=== PATIENT | female | born 1960 | race Caucasian/White ===

== ENCOUNTER 2018-01-14 17:41 | Inpatient (IN) | payer BC ==
[~2018-01-14] VITALS: Ht 167.6 cm; Wt 162.0 kg
[2018-01-14] MEDS ORDERED: ipratropium/albuterol 3ml nebule NEB ONE (17:55)
[2018-01-14] MEDS ORDERED: methylPREDNISolone sod succ 125mg/2ml vial IV ONE (17:55)
[2018-01-14 18:31] LABS: BASOPHILS % (AUTO) 0.2 % (0-1); EOSINOPHILS # (AUTO) 0.2 X10'3 (0-0.9); EOSINOPHILS % (AUTO) 1.2 % (0-6); HEMATOCRIT 39.6 % (35.0-45.0); HEMOGLOBIN 13.3 g/dl (12.0-16.0); LYMPHOCYTES # (AUTO) 2.7 X10'3 (1.1-4.8); LYMPHOCYTES % (AUTO) 18.9 % (21-51); MEAN CORPUSCULAR HEMOGLOBIN 29.9 PG (27.0-31.0); MEAN CORPUSCULAR HGB CONC 33.4 % (33.0-36.5); MEAN CORPUSCULAR VOLUME 89.4 FL (78-98); MEAN PLATELET VOLUME 8.5 FL (7.4-10.4); MONOCYTES % (AUTO) 7.2 % (2-12); NEUTROPHILS # (AUTO) 10.2 X10'3 (1.8-7.7); NEUTROPHILS % (AUTO) 72.5 % (42-75); PLATELET COUNT 310 X10'3 (140-440); RED BLOOD COUNT 4.43 X10'6 (4.20-5.60); RED CELL DISTRIBUTION WIDTH 16.7 % (11.5-14.5); WHITE BLOOD COUNT 14.1 X10'3 (4.5-11.0)
[2018-01-14 18:38] LABS: PARTIAL THROMBOPLASTIN TIME 28 SECONDS (22-32); PROTHROMBIN TIME 10.6 SECONDS (9.0-12.0)
[2018-01-14 18:45] LABS: ANION GAP 9 (8-16); BLOOD UREA NITROGEN 14 MG/DL (7-18); BUN/CREATININE RATIO 14.7 (6.6-38.0); CHLORIDE 101 MMOL/L (99-107); CREATININE 0.95 MG/DL (0.40-0.90); GLUCOSE 124 MG/DL (70-104); POTASSIUM 3.1 MMOL/L (3.5-5.1); SODIUM 137 MMOL/L (135-145); TOTAL CARBON DIOXIDE 26.9 MMOL/L (24-32)
[2018-01-14 18:46] LABS: ALANINE AMINOTRANSFERASE 51 U/L (12-78); ALBUMIN 3.1 G/DL (3.4-5.0); ALBUMIN/GLOBULIN RATIO 0.7 (1.1-1.5); ALKALINE PHOSPHATASE 180 IU/L (46-116); ASPARTATE AMINO TRANSFERASE 53 U/L (10-37); BILIRUBIN,TOTAL 0.3 MG/DL (0.1-1.0); CALCIUM 8.8 MG/DL (8.5-10.1); TOTAL PROTEIN 7.5 G/DL (6.4-8.2); eGFR 61 ML/MIN
[2018-01-14 19:12] LABS: TOTAL CELLS COUNTED 100
[2018-01-14 19:13] LABS: PLATELET ESTIMATE NORMAL
[2018-01-14] MEDS ORDERED: iohexol 350MG/ML 100ml bottle IV ONE (20:21)
[2018-01-14] MEDS ORDERED: furosemide 10 MG/1 ML 10ml inj IV ONE (23:00)
[2018-01-14] MEDS ORDERED: levoFLOXACIN-Levaquin 500mg/D5 100 ML IV ONE (23:00)
[2018-01-14] MEDS ORDERED: potassium Cl 10 mEq/100mL bag IV ONE (23:35)
[2018-01-15] MEDS ORDERED: HYDROcodone/acetaminophen 5mg/325mg tablet PO PRN (00:25)
[2018-01-15] MEDS ORDERED: HYDROcodone/acetaminophen 10/325mg tab PO PRN (00:25)
[2018-01-15] MEDS ORDERED: magnesium 4gm in 100ml NS 100 ML IV PRN (00:25)
[2018-01-15] MEDS ORDERED: magnesium hydroxide 30ml (MOM) UD suspension PO PRN (00:25)
[2018-01-15] MEDS ORDERED: enoxaparin 30mg/0.3ml syringe SUBCUT ONE (00:25)
[2018-01-15] MEDS ORDERED: magnesium Cl slow-release 64mg tablet PO PRN (00:25)
[2018-01-15] MEDS ORDERED: magnesium 2GM in 50ml NS 50 ML IV PRN (00:25)
[2018-01-15] MEDS ORDERED: mag hydrox/Alum hydrox/simeth 30ml oral suspension PO PRN (00:25)
[2018-01-15] MEDS ORDERED: potassium Cl 20 mEq SR tablet PO PRN ×2 (00:25)
[2018-01-15] MEDS ORDERED: acetaminophen 325mg tablet PO PRN (00:25)
[2018-01-15] MEDS ORDERED: ondansetron/PF 4mg/2ml inj IV PRN (00:25)
[2018-01-15] MEDS ORDERED: potassium Cl 40MEQ/NS 500ml 500 ML IV PRN ×2 (00:25)
[2018-01-15] MEDS ORDERED: METH2.5T PO (00:33)
[2018-01-15] MEDS ORDERED: FOLI1TAB16 PO (00:33)
[2018-01-15] MEDS ORDERED: DOCU-28 PO (00:33)
[2018-01-15] MEDS ORDERED: PRED5TAB PO (00:33)
[2018-01-15] MEDS ORDERED: OMEP40CA37 PO (00:33)
[2018-01-15] MEDS ORDERED: LEVO75TA PO (00:33)
[2018-01-15] MEDS ORDERED: HYDR-569 PO (00:33)
[2018-01-15] MEDS ORDERED: temazepam 15mg capsule PO PRN (00:46)
[2018-01-15] MEDS ORDERED: potass W/LIDOcaine 10mEq/100ml 100 ML IV ONE ×2 (00:50→00:55)
[2018-01-15] MEDS ORDERED: levoFLOXACIN-Levaquin 250mg/D5 50 ML IV ONE (01:00)
[2018-01-15] MEDS: potassium Cl 20mEq in NS 1,000 ML IV SCH ×2 (01:07→10:48)
[2018-01-15] MEDS: CefTRIAXone 2gm/D5W 50ml 50 ML IV SCH ×2 (02:06→22:30)
[2018-01-15 07:33] VITALS: BP 97/57
[2018-01-15] MEDS: K and/or MAG REPLACEMENT MC SCH (08:00)
[2018-01-15 09:06] LABS: BASOPHILS % (AUTO) 0.1 % (0-1); EOSINOPHILS # (AUTO) 0.1 X10'3 (0-0.9); EOSINOPHILS % (AUTO) 0.9 % (0-6); HEMATOCRIT 37.3 % (35.0-45.0); HEMOGLOBIN 12.6 g/dl (12.0-16.0); LYMPHOCYTES # (AUTO) 1.4 X10'3 (1.1-4.8); LYMPHOCYTES % (AUTO) 10.8 % (21-51); MEAN CORPUSCULAR HEMOGLOBIN 29.9 PG (27.0-31.0); MEAN CORPUSCULAR HGB CONC 33.9 % (33.0-36.5); MEAN CORPUSCULAR VOLUME 88.2 FL (78-98); MEAN PLATELET VOLUME 8.9 FL (7.4-10.4); MONOCYTES # (AUTO) 0.3 X10'3 (0-0.9); MONOCYTES % (AUTO) 2.7 % (2-12); NEUTROPHILS # (AUTO) 10.8 X10'3 (1.8-7.7); NEUTROPHILS % (AUTO) 85.5 % (42-75); PLATELET COUNT 318 X10'3 (140-440); RED BLOOD COUNT 4.23 X10'6 (4.20-5.60); WHITE BLOOD COUNT 12.6 X10'3 (4.5-11.0)
[2018-01-15 09:29] LABS: ALANINE AMINOTRANSFERASE 46 U/L (12-78); ALBUMIN 2.7 G/DL (3.4-5.0); ALBUMIN/GLOBULIN RATIO 0.6 (1.1-1.5); ALKALINE PHOSPHATASE 171 IU/L (46-116); ANION GAP 12 (8-16); ASPARTATE AMINO TRANSFERASE 39 U/L (10-37); BILIRUBIN,TOTAL 0.2 MG/DL (0.1-1.0); BLOOD UREA NITROGEN 14 MG/DL (7-18); BUN/CREATININE RATIO 19.2 (6.6-38.0); CALCIUM 8.7 MG/DL (8.5-10.1); CHLORIDE 105 MMOL/L (99-107); CREATININE 0.73 MG/DL (0.40-0.90); GLUCOSE 157 MG/DL (70-104); MAGNESIUM 2.1 MG/DL (1.5-2.4); POTASSIUM 4.7 MMOL/L (3.5-5.1); SODIUM 139 MMOL/L (135-145); TOTAL CARBON DIOXIDE 22.5 MMOL/L (24-32); TOTAL PROTEIN 7.5 G/DL (6.4-8.2); eGFR 82 ML/MIN
[2018-01-15 11:00] VITALS: BP 109/55
[2018-01-15] MEDS ORDERED: furosemide 40mg/4ml inj IV ONE (12:00)
[2018-01-15] MEDS ORDERED: predniSONE 20 mg tablet PO ONE (12:00)
[2018-01-15 15:00] VITALS: BP 94/55
[2018-01-15] MEDS: ipratropium/albuterol 3ml nebule NEB SCH ×2 (19:37→23:35)
[2018-01-15] MEDS: levoFLOXACIN-Levaquin 750MG/D5 150 ML IV SCH (20:19)
[2018-01-15 23:00] VITALS: BP 97/54
[2018-01-16] VITALS (7 sets, daily range): BP systolic 97–121; BP diastolic 34–68
[2018-01-16] MEDS ORDERED: ipratropium/albuterol 3ml nebule NEB PRN (01:45)
[2018-01-16 05:06] LABS: ALANINE AMINOTRANSFERASE 41 U/L (12-78); ALBUMIN 2.6 G/DL (3.4-5.0); ALBUMIN/GLOBULIN RATIO 0.6 (1.1-1.5); ALKALINE PHOSPHATASE 147 IU/L (46-116); ANION GAP 13 (8-16); ASPARTATE AMINO TRANSFERASE 27 U/L (10-37); BILIRUBIN,TOTAL 0.2 MG/DL (0.1-1.0); BLOOD UREA NITROGEN 23 MG/DL (7-18); BUN/CREATININE RATIO 24.2 (6.6-38.0); CALCIUM 8.9 MG/DL (8.5-10.1); CHLORIDE 103 MMOL/L (99-107); CREATININE 0.95 MG/DL (0.40-0.90); GLUCOSE 139 MG/DL (70-104); MAGNESIUM 2.1 MG/DL (1.5-2.4); POTASSIUM 3.7 MMOL/L (3.5-5.1); SODIUM 140 MMOL/L (135-145); TOTAL CARBON DIOXIDE 24.1 MMOL/L (24-32); TOTAL PROTEIN 7.1 G/DL (6.4-8.2); eGFR 61 ML/MIN
[2018-01-16 05:27] LABS: BASOPHILS # (AUTO) 0.4 X10'3 (0-0.2); BASOPHILS % (AUTO) 1.8 % (0-1); EOSINOPHILS % (AUTO) 0 % (0-6); HEMATOCRIT 34.9 % (35.0-45.0); HEMOGLOBIN 11.7 g/dl (12.0-16.0); LYMPHOCYTES # (AUTO) 1.8 X10'3 (1.1-4.8); LYMPHOCYTES % (AUTO) 8.4 % (21-51); MEAN CORPUSCULAR HEMOGLOBIN 29.7 PG (27.0-31.0); MEAN CORPUSCULAR HGB CONC 33.6 % (33.0-36.5); MEAN CORPUSCULAR VOLUME 88.4 FL (78-98); MEAN PLATELET VOLUME 9.2 FL (7.4-10.4); MONOCYTES # (AUTO) 2.1 X10'3 (0-0.9); MONOCYTES % (AUTO) 9.9 % (2-12); NEUTROPHILS # (AUTO) 17.4 X10'3 (1.8-7.7); NEUTROPHILS % (AUTO) 79.9 % (42-75); PLATELET COUNT 379 X10'3 (140-440); RED BLOOD COUNT 3.95 X10'6 (4.20-5.60); RED CELL DISTRIBUTION WIDTH 15.7 % (11.5-14.5); WHITE BLOOD COUNT 21.7 X10'3 (4.5-11.0)
[2018-01-16] MEDS: K and/or MAG REPLACEMENT MC SCH (08:00)
[2018-01-16] MEDS: furosemide 40mg/4ml inj IV SCH (08:15)
[2018-01-16] MEDS: predniSONE 20 mg tablet PO SCH (08:16)
[2018-01-16] MEDS: levoTHYROXINE 75mcg tablet PO SCH (11:39)
[2018-01-16 12:51] LABS: ANISOCYTOSIS 1+; PLATELET ESTIMATE NORMAL; TOTAL CELLS COUNTED 100
[2018-01-16] MEDS: lactobacillus rhamnosus 10,000 MMU CELLS/CAPSULE PO SCH (20:09)
[2018-01-16] MEDS: CefTRIAXone 2gm/D5W 50ml 50 ML IV SCH (20:10)
[2018-01-16] MEDS: levoFLOXACIN-Levaquin 750MG/D5 150 ML IV SCH (21:36)
[2018-01-17 03:00] VITALS: BP 106/53
[2018-01-17 05:54] LABS: ALANINE AMINOTRANSFERASE 42 U/L (12-78); ALBUMIN 2.7 G/DL (3.4-5.0); ALBUMIN/GLOBULIN RATIO 0.6 (1.1-1.5); ALKALINE PHOSPHATASE 146 IU/L (46-116); ANION GAP 9 (8-16); ASPARTATE AMINO TRANSFERASE 26 U/L (10-37); BILIRUBIN,TOTAL 0.2 MG/DL (0.1-1.0); BLOOD UREA NITROGEN 25 MG/DL (7-18); CALCIUM 8.9 MG/DL (8.5-10.1); CHLORIDE 104 MMOL/L (99-107); GLUCOSE 93 MG/DL (70-104); POTASSIUM 3.8 MMOL/L (3.5-5.1); SODIUM 140 MMOL/L (135-145); TOTAL CARBON DIOXIDE 27.4 MMOL/L (24-32); TOTAL PROTEIN 7.2 G/DL (6.4-8.2); eGFR 57 ML/MIN
[2018-01-17 07:00] VITALS: BP 108/63
[2018-01-17 07:06] LABS: BASOPHILS # (AUTO) 0.1 X10'3 (0-0.2); BASOPHILS % (AUTO) 0.6 % (0-1); EOSINOPHILS # (AUTO) 0.2 X10'3 (0-0.9); EOSINOPHILS % (AUTO) 1.1 % (0-6); HEMATOCRIT 38.9 % (35.0-45.0); HEMOGLOBIN 12.7 g/dl (12.0-16.0); LYMPHOCYTES # (AUTO) 3.9 X10'3 (1.1-4.8); LYMPHOCYTES % (AUTO) 19.4 % (21-51); MEAN CORPUSCULAR HEMOGLOBIN 29.4 PG (27.0-31.0); MEAN CORPUSCULAR HGB CONC 32.7 % (33.0-36.5); MEAN PLATELET VOLUME 9.4 FL (7.4-10.4); MONOCYTES # (AUTO) 1.8 X10'3 (0-0.9); MONOCYTES % (AUTO) 8.8 % (2-12); NEUTROPHILS # (AUTO) 14.2 X10'3 (1.8-7.7); NEUTROPHILS % (AUTO) 70.1 % (42-75); PLATELET COUNT 425 X10'3 (140-440); RED BLOOD COUNT 4.32 X10'6 (4.20-5.60); RED CELL DISTRIBUTION WIDTH 17.5 % (11.5-14.5); WHITE BLOOD COUNT 20.2 X10'3 (4.5-11.0)
[2018-01-17] MEDS: furosemide 40mg/4ml inj IV SCH (07:07)
[2018-01-17] MEDS: lactobacillus rhamnosus 10,000 MMU CELLS/CAPSULE PO SCH (07:08)
[2018-01-17] MEDS: levoTHYROXINE 75mcg tablet PO SCH (07:08)
[2018-01-17] MEDS: predniSONE 20 mg tablet PO SCH (07:08)
[2018-01-17] MEDS ORDERED: folic acid 1mg tablet PO SCH (08:00)
[2018-01-17] MEDS ORDERED: pantoprazole 40mg Tablet.DR PO SCH (08:00)
[2018-01-17] MEDS ORDERED: docusate sod 100mg capsule PO SCH (08:00)
[2018-01-17] MEDS: K and/or MAG REPLACEMENT MC SCH (08:00)
[2018-01-17 10:31] LABS: ANISOCYTOSIS 2+; PLATELET ESTIMATE NORMAL; TOTAL CELLS COUNTED 100
[2018-01-17 10:32] LABS: POLYCHROMASIA 1+
[2018-01-17 10:33] LABS: BURR CELLS FEW; TARGET CELLS FEW
[2018-01-17 11:00] VITALS: BP 102/57
[2018-01-17 15:00] VITALS: BP 99/55
[2018-01-17] MEDS ORDERED: LEVO500T2 PO (15:07)
[2018-01-17] MEDS ORDERED: FURO-150 PO (15:07)
[2018-01-17] MEDS ORDERED: PRED10TA23 PO (15:07)
[2018-01-17] MEDS ORDERED: pneumococcal 23-VAL P-sac vacc 25 mcg/0.5ml vial IMVAC ONE (15:35)
== END 2018-01-17 16:34 | disposition home health service (06) | DRG 194 ==
LOC: ER 17:43 → ED HOLD 01-15 00:23 → PCU 3S 01-15 07:12 → CMPBEDREQ 01-16 19:26
PROVIDERS: ADMIT Internal Medicine; ATTEND Internal Medicine
PROC: B32T1ZZ Computerized Tomography (CT Scan) of Left Pulmonary Artery using Low Osmolar Contrast (ICD-10-PCS; 2018-01-15)
PROC: B3201ZZ Computerized Tomography (CT Scan) of Thoracic Aorta using Low Osmolar Contrast (ICD-10-PCS; 2018-01-15)
PROC: B32S1ZZ Computerized Tomography (CT Scan) of Right Pulmonary Artery using Low Osmolar Contrast (ICD-10-PCS; 2018-01-15)
PROC: 3E0234Z Introduction of Serum, Toxoid and Vaccine into Muscle, Percutaneous Approach (ICD-10-PCS; principal; 2018-01-17)
DX: J18.9 Pneumonia, unspecified organism (principal); I50.22 Chronic systolic (congestive) heart failure; I42.9 Cardiomyopathy, unspecified; J20.9 Acute bronchitis, unspecified; E87.6 Hypokalemia; M06.9 Rheumatoid arthritis, unspecified; E03.9 Hypothyroidism, unspecified; R09.02 Hypoxemia; I25.10 Atherosclerotic heart disease of native coronary artery without angina pectoris; Z79.899 Other long term (current) drug therapy; Z88.1 Allergy status to other antibiotic agents; Z23 Encounter for immunization; Z90.81 Acquired absence of spleen
CPT/HCPCS: 36415; 71045; 71275; 80053; 83605; 83735; 83880; 84145; 84484; 85025; 85610; 85730; 87040; 87070; 87502; 87503; 90732; 93005; 93306; 94640; 94667; 94668; 94760; 96365; 99285; J0696; J1650; J1940; J1956; J2930; J3480; J7030; J7512; Q9967